=== PATIENT | female | born 1975 | race Caucasian/White ===

== ENCOUNTER → 2019-11-27 10:38 | Outpatient (CLI) | payer MEDICAID, SELFPAY ==
--- NOTE | 2019-11-27 10:43 | XR_ITS ---
PROCEDURE: XR FOOT WT BEARING RT 3V CLINICAL INDICATION: stress injury Pain on top of foot COMPARISON: No exams were available for comparison FINDINGS: No fracture or dislocation. No lytic or blastic change. There is normal mineralization. The joint spaces are well-preserved. No significant degenerative/arthritic changes. No erosive changes evident. Other findings:None. IMPRESSION: No acute findings. Dictated by: Carroll Dyer MD 11/27/2019 18:52 Electronically signed by Carroll Dyer MD in [place] 11/27/2019 18:52
== END ==
PROVIDERS: Visit Provider Podiatrist
DX: M79.671 Pain in right foot (principal)
CPT/HCPCS: 73630

== ENCOUNTER → 2020-01-30 09:04 | Outpatient (CLI) | payer MEDICAID, SELFPAY ==
--- NOTE | 2020-01-30 09:05 | MR_ITS ---
PROCEDURE: MR ANKLE RT WO/W CON CLINICAL INDICATION: evaluate for tendon tear, 5th met. stress fracture, peroneal tendinitis, foot sprain Percent is some 50 percent age Ankle pain with lateral sided swelling. Burning sensation in foot. Pain when bending and extending. No trauma. Prior x-ray 11/27/2019. 17 mL ProHance given. Lot:[id number] exp: Jun 2022 COMPARISON: XR FOOT WT BEARING RT 3V from 11/27/2019 TECHNIQUE: Routine multiplanar multi echo sequences are performed without gadolinium enhancement. FINDINGS: There is thinning of the ATFL with fluid on both sides consistent with partial tear. Small amount of fluid is present along the anterior and posterior aspect of the ankle joint. The PT FL and tibial fibular ligaments appear intact. Deltoid ligament appears intact. The posterior tibialis, flexor hallucis longus, and flexor digitorum longus appear intact as does the Achilles tendon and the anterior extensor tendons none. Peroneal tendons appear intact. No bone bruise apparent. IMPRESSION: Thinning of the fibers of the ATFL with fluid in this area consistent with at least a partial ATFL tear with small ankle joint effusion Dictated by: Carroll Dyer MD 02/03/2020 11:49 Electronically signed by Carroll Dyer MD in [place] 02/03/2020 11:49
== END ==
PROVIDERS: Visit Provider Podiatrist
DX: S93.601D Unspecified sprain of right foot, subsequent encounter (principal)
CPT/HCPCS: 73723; A9576

== ENCOUNTER 2020-02-14 10:00 | Outpatient (RCR) | payer MEDICAID, SELFPAY ==
--- NOTE | 2019-12-18 15:04 | HMH.PTOPEV ---
PT Outpatient Evaluation Rehab PT Outpatient Evaluation Start: 12/18/19 14:14 Freq: Status: Active Protocol: Document 12/18/19 14:14 LORENAJYOTI (Rec: 12/18/19 14:55 LORENAJYOTI [id number]) Electronically Signed By Harjit Riley PT 12/18/19 14:14 Outpatient Therapy Subjective History Subjective History This is the initial Physical Therapy evaluation for October. Pt is a 44 y/o female referred to PT for c/o R foot pain. Pt reports pain began on/off ~ in july. Pt reports pain began being rather consistent in August. Pt reports pain has increased since august. Pt reports pain is in dorsum of R foot and is a burning and stabbing pain at its worst. Pt reports she has been wearing fx boot which has eased pain, but pt reports she is no longer working, and not up on her feet all the time which she thinks has decreased pain more. Chief Complaint Pain,Stiff,Weakness Symptom Type Ache,Throb,Sharp,Dull,Stabbing ,Burning,Numbness,Tingling Symptoms Relieved By Rest/Positioning Symptoms Aggravated By Physical Activity,Walking Prior Functional Limitations None Current Functional Limitations Housework,Recreation Activity, Walking,Stairs Symptom Description Constant but Variable Level of pain today (0-10) 6 Pain scale - at its best (0-10) 0 Pain scale - at its worst (0-10) 8 Ankle/Foot Eval Gait Observation General Gait Pattern Observation Antalgic Gait,Decrease Weight Bear (R) Palpation Tenderness right Ankle/Foot Palpation Findings Tenderness,Trigger Point Ankle/Foot Palpation Overall Comment dorsum foot TTP/Calf Mm TTP ROM left Ankle/Foot Dorsiflexion w/Knee Extended 10 Active Range Motion (degrees) Ankle/Foot Plantar Flexion Active Range 50 of Motion (degrees) Ankle/Foot Eversion Active Range of 35 Motion (degrees) Ankle/Foot Inversion Active Range of 45 Motion (degrees) right Ankle/Foot Dorsiflexion w/Knee Extended 5 Active Range Motion (degrees) Ankle/Foot Plantar Flexion Active Range 50 of Motion (degrees) Ankle/Foot Eversion Active Range of 35 Motion (degrees) Ankle/Foot Inversion Act
== END 2020-02-14 10:05 | disposition home or self-care (01) ==
LOC: PT 10:00
PROVIDERS: Visit Provider Podiatrist
DX: M25.571 Pain in right ankle and joints of right foot (principal); S93.601A Unspecified sprain of right foot, initial encounter; M76.71 Peroneal tendinitis, right leg
CPT/HCPCS: 97010; 97014; 97033; 97035; 97110; 97112; 97163; 97164; G0283

== ENCOUNTER 2020-12-18 13:53 | Emergency (ER) | payer MEDICAID, SELFPAY ==
[2020-12-18 14:00] VITALS: BP 137/79; PULSE 115; RESP 20; TEMP 37.3; O2SAT 100; BMI 25.8
--- NOTE | 2020-12-18 14:23 | HMH.EDUTC ---
[facility] Disposition Clinical Impression: Acute sinusitis with symptoms greater than 10 days Disposition: Home, Self-Care Condition on Discharge: Good Instructions: Sinusitis, DI for Sinusitis, Doxycycline, Fluticasone Nasal [place] Additional Instructions: *Monitor Temp, Over the counter Motrin or Tylenol as directed/as needed Tylenol every 4 hours and Motrin every 6 hours (as long as your family doctor has told you that you can take it) for fever or pain. and straight to ER if unable to lower temp less than 101.0 after medication given *Warm salt water gargles may help to soothe the throat *Throat Lozenges *Warm fluids like tea with honey may help to soothe the throat *Sleep elevated *Humidifier/Vaporizer *Flonase 2 sprays in each nostril daily but be aware that it may take 2-3 days before you notice improvement Make sure to drink plenty of fluids Follow up IMMEDIATELY for new or worsening symptoms or no Noticeable improvement over the next 48-72 hours. 911 for difficulty breathing or swallowing Prescriptions: Doxycycline Monohydrate [Doxycycline [place] 100mg Tab] 100 mg PO Q12 7 Days #14 tab Transmission Status: Pending to [facility] # Fluticasone Propionate [Flonase 50mcg nasal spray 16gm] 1 spr NS DAILY #1 bottle Transmission Status: Pending to [facility] # methylPREDNISolone [Medrol 4mg tab] 4 mg PO DIRECTED #21 tab Transmission Status: Pending to [facility] # Referrals: Provider,Referral, MD [Primary Care Provider] - As needed Time of Disposition: 14:36 Medical Decision Making - Sunil Inquiry Pt receiving controlled substance: No Sunil was queried for this patient: No Vital Signs: 12/18/20 14:00 Temperature 99.1 F Temperature Source Oral Pulse Rate [Left Brachial] 115 H Respiratory Rate 20 Blood Pressure [Left Arm] 137/79 Blood Pressure Mean [Left Arm] 98 Blood Pressure Source [Left Arm] Automatic Cuff Blood Pressure Position [Left Arm] Sitting 02 Sat by Pulse Oximetry 100 Oxygen Delivery Method Room Air [facility] HPI - General Stated complaint: sinus drainage Time Seen by Provider: 12/18/20 14:23 Mode of Arrival: Ambulatory Source of Information: Patient Limitations: No Limitations Description of Symptoms (Recalled from Triage Doc. by RN): PATIENT C/O SINUS CONGESTION AND DRAINAGE, DIZZY SPELLS, HEADACHE, RIGHT EAR DRAINAGE AT NIGHT, AND INTERMITTEN SOA AND CHEST BURNING X 1 MONTH HEENT Symptoms (Recalled from RN notes): Yes Resp Symptoms (Recalled from RN notes): Yes Skin Symptoms (Recalled from RN notes): No MS Symptoms (Recalled from RN notes): No Functional Status (Recalled from RN notes): WNL - History of Present Illness Provider Complaint: Patient states that she has been having sinus problems for over a month State that she has also been having pressure like feeling in her ears, scratchy throat and drainage in the back of her throat State that she feels like it is trying to move into her lungs - Related Data Home Medications Medication Instructions Recorded Confirmed cetirizine 10 mg capsule 10 mg PO DAILY 11/27/19 12/18/20 Previous Rx's Medication Instructions Recorded Doxycycline Monohydrate 100 mg PO Q12 7 Days #14 tab 12/18/20 [Doxycycline [place] 100mg Tab] Fluticasone Propionate [Flonase 1 spr NS DAILY #1 bottle 12/18/20 50mcg nasal spray 16gm] methylPREDNISolone [Medrol 4mg 4 mg PO DIRECTED #21 tab 12/18/20 tab] Allergies Allergy/AdvReac Type Severity Reaction Status Date / Time Penicillins Allergy Verified 12/18/20 14:17 Sulfa (Sulfonamide Allergy Verified 03/03/20 14:06 Antibiotics) - Worker's Comp Is this a Worker's Comp case?: No [facility] History - Hepatitis A Screen Drug use history?: No High risk sexual behaviors?: No History of sexually transmitted infection?: No Currently employed?: No Childcare worker?: No Do you have indoor plumbing?: Yes Do you have electricity?
[2020-12-18 14:35] VITALS: BP 137/79; PULSE 115; RESP 20; TEMP 37.3; O2SAT 100
== END 2020-12-18 14:41 | disposition home or self-care (01) ==
PROVIDERS: Emergency Provider Nurse Practitioner
DX: J01.90 Acute sinusitis, unspecified (principal); F41.9 Anxiety disorder, unspecified
CPT/HCPCS: 99202; G0463

== ENCOUNTER 2020-12-21 16:10 | Observation (INO) | payer MEDICAID, SELFPAY ==
[2020-12-21] VITALS (29 sets, daily range): BP systolic 112–154; BP diastolic 62–89; PULSE 76–115; RESP 14–18; TEMP 36.6–37.4; O2SAT 92–100; BMI 27.4; BMI 28.9
[2020-12-21 16:30] LABS: Microscopic, Urine URINE MICROSCOPIC (MICROSCOPIC)
[2020-12-21 16:34] LABS: Appearance,Urine CLEAR (Clear); Bilirubin,Urine Negative (Negative); Blood, Urine Negative (Negative); Color,Urine YELLOW (Yellow); Glucose,Urine (UA) Negative (Negative); Ketones,Urine TRACE (Negative); Leukocyte Esterase,Urine Negative (Negative); Nitrate,Urine Negative (Negative); Protein,Urine Negative (Negative); Urobilinogen,Urine 0.2 EU/dl (0.2)
[2020-12-21 16:43] LABS: Basophils % 0.5 % (0.1-2.0); Eosinophils % 0.2 % (0.1-12.0); Lymphocytes # 1.3 K/mm3 (0.7-4.5); Lymphocytes % 18.4 % (10-50); Mean Corpuscular HGB Conc 26.1 g/dL (31.8-35.4); Mean Corpuscular Hemoglobin 16.4 pg (27.0-31.2); Mean Corpuscular Volume 62.8 fl (81-99); Mean Platelet Volume 11.5 fl (7.4-10.4); Monocytes # 0.3 K/mm3 (0.1-1.0); Monocytes % 4.3 % (1.7-9.3); Neutrophils # 5.2 K/mm3 (1.8-7.8); Neutrophils % 76.7 % (37.0-80.0); Platelet Count 301 K/mm3 (142-424); Red Blood Count 2.35 M/mm3 (4.20-5.40); Red Cell Distribution Width 19.3 % (11.5-17.5); White Blood Count 6.8 K/mm3 (4.8-10.8)
--- NOTE | 2020-12-21 16:47 | CT_ITS ---
PROCEDURE INFORMATION: Exam: CT Abdomen And Pelvis With Contrast Exam date and time: 12/21/2020 4:47 PM Age: 45 years old Clinical indication: Abdominal pain; Acute; Patient HX: Rlq pain TECHNIQUE: Imaging protocol: Computed tomography of the abdomen and pelvis with contrast. Total images: 292 Radiation optimization: All CT scans at this facility use at least one of these dose optimization techniques: automated exposure control; mA and/or kV adjustment per patient size (includes targeted exams where dose is matched to clinical indication); or iterative reconstruction. Contrast material: ISOVUE; Contrast volume: 75 ml; Contrast route: IV; COMPARISON: No relevant prior studies available. FINDINGS: Lungs: Visualized lung bases are clear. Heart: Heart size normal. Liver: Normal contour. No mass lesions. No intrahepatic biliary ductal dilatation. Gallbladder and bile ducts: Normal. No calcified stones. No ductal dilation. Pancreas: Normal. No inflammatory changes or ductal dilation. Spleen: Normal. No splenomegaly. Adrenal glands: Normal. No adrenal mass. Kidneys and ureters: No acute abnormalities. No hydronephrosis or hydroureter. No urinary tract stones are identified. Small intrapelvic phleboliths are present bilaterally. 7 mm fat density lesion in the upper pole cortex of the left kidney consistent with a small angiomyolipoma. This does not require further evaluation. Stomach and bowel: Large hiatal hernia containing much of the proximal stomach as well as a moderate amount of herniated intra-abdominal fat with no evidence of associated obstruction or strangulation. The small bowel is nondilated with no gross abnormality. There is a large amount of stool distributed throughout the colon suggesting constipation. Appendix: No evidence of appendicitis. The appendix is very short but demonstrates normal caliber at 4 mm diameter with no wall thickening or inflammatory changes. Intraperitoneal space: Minimal amount of intrapelvic free fluid, within physiologic range for a young woman. No free air. Vasculature: No acute process. No abdominal aortic aneurysm. Lymph nodes: No adenopathy. Urinary bladder: The urinary bladder is largely contracted without gross abnormality. Reproductive: Uterus and right ovary unremarkable. 11 mm follicle in the left ovary, within physiologic range. Bones/joints: No acute osseous abnormalities. Mild-moderate disc degenerative changes L5-S1. Soft tissues: Very small fatty umbilical hernia . No evidence of associated bowel herniation or strangulation. IMPRESSION: 1. There is a large amount of stool distributed throughout the colon suggesting constipation. 2. No evidence of appendicitis. No urolithiasis or hydronephrosis. 3. Large hiatal hernia. 4. Additional non-emergent findings detailed above. COMMENTS: Consistent with the [employer]'s Incidental Findings Committee white paper (J Am [place] Radiol 2018): Any incidental renal lesion less than 1 cm or classified as too small to characterize, or any incidental cystic renal lesion characterized as simple-appearing, is likely benign. No follow-up imaging is recommended for these lesions per consensus recommendations based on imaging criteria.
--- NOTE | 2020-12-21 16:47 | HMH.EDGENADL ---
ED Disposition Clinical Impression: Symptomatic anemia Constipation Qualifiers: Constipation type: unspecified constipation type Qualified Code(s): K59.00 - Constipation, unspecified Disposition: Admitted As Inpatient Condition on Discharge: Serious Instructions: DI for Acute Abdominal Pain Referrals: Provider,Referral, [Primary Care Provider] - Time of Disposition: 19:07 - Critical Care Critical Care Time: No Attestation: On , the high probability of a clinically significant, sudden or life threatening deterioration of the following system(s) required my full and direct attention, intervention and personal management. The time I documented below is in addition to time spent performing reported procedures but includes the following listed in this critical care notation. Total Critical Care Time: 30 Vital system(s) involved:: Circulatory Failure, Shock (Hemorrhage) My critical care processes included: Assessment & monitoring of V/S, Initial and Re-exams, Data Review/Interpretation, Coordinating Care, Medication Orders and management, Documentation Medical Decision Making - Medical Records Medical records reviewed: Yes: I reviewed the patient's medical records. - Sunil Inquiry Pt receiving controlled substance: No Vital Signs: 12/21/20 16:16 12/21/20 17:00 12/21/20 17:02 Temperature 97.8 F Temperature Source Oral Pulse Rate 95 H 115 H Pulse Rate [Right Radial] 109 H Respiratory Rate 18 18 TAR Vitals Timing Blood Pressure 133/70 133/70 Blood Pressure [Right Arm] 154/80 H Blood Pressure Mean 100 Blood Pressure Mean [Right Arm] 104 Blood Pressure Source Automatic Cuff Blood Pressure Source [Right Arm] Automatic Cuff Blood Pressure Position Sitting Blood Pressure Position [Right Arm] Sitting 02 Sat by Pulse Oximetry 98 100 95 Oxygen Delivery Method Room Air Room Air 12/21/20 18:00 12/21/20 18:45 12/21/20 19:00 Temperature 98.6 F 98.9 F Temperature Source Oral Oral Pulse Rate 85 84 88 Pulse Rate [Right Radial] Respiratory Rate 14 14 TAR Vitals Timing Pre-Blood Vitals Start Vitals Blood Pressure 126/71 112/66 139/85 Blood Pressure [Right Arm] Blood Pressure Mean 95 81 103 Blood Pressure Mean [Right Arm] Blood Pressure Source Automatic Cuff Automatic Cuff Blood Pressure Source [Right Arm] Blood Pressure Position Sitting Sitting Blood Pressure Position [Right Arm] 02 Sat by Pulse Oximetry 100 92 L 100 Oxygen Delivery Method 12/21/20 19:05 12/21/20 19:10 12/21/20 19:15 Temperature 97.8 F 97.9 F 98.1 F Temperature Source Oral Oral Oral Pulse Rate 88 85 83 Pulse Rate [Right Radial] Respiratory Rate 15 14 15 TAR Vitals Timing 5 Minute 10 Minute 15 Minute Blood Pressure 131/67 121/62 117/67 Blood Pressure [Right Arm] Blood Pressure Mean 88 81 83 Blood Pressure Mean [Right Arm] Blood Pressure Source Automatic Cuff Automatic Cuff Automatic Cuff Blood Pressure Source [Right Arm] Blood Pressure Position Sitting Sitting Sitting Blood Pressure Position [Right Arm] 02 Sat by Pulse Oximetry 100 100 100 Oxygen Delivery Method 12/21/20 19:30 12/21/20 19:45 Temperature 98.4 F 98.2 F Temperature Source Oral Oral Pulse Rate 84 81 Pulse Rate [Right Radial] Respiratory Rate 16 15 TAR Vitals Timing 30 Minute 45 Minute Blood Pressure 121/70 145/81 H Blood Pressure [Right Arm] Blood Pressure Mean 87 102 Blood Pressure Mean [Right Arm] Blood Pressure Source Automatic Cuff Automatic Cuff Blood Pressure Source [Right Arm] Blood Pressure Position Supine Supine Blood Pressure Position [Right Arm] 02 Sat by Pulse Oximetry 100 100 Oxygen Delivery Method - Lab Data Lab Results 12/21/20 16:20: Urine Color Yellow, Urine Appearance Clear, Urine pH 6.0, Ur Specific [place] 1.020, Urine Protein Negative, Urine Glucose (UA) Negative, Urine Ketones Trace, Urine Blood Negative, Urine Nitrate Negative, Urine Bilirubin Negative, Uri
[2020-12-21 16:48] LABS: Alanine Aminotransferase 18 U/L (12-78); Albumin Level 4.5 g/dl (3.5-5.0); Albumin/Globulin Ratio 1.6 (1.1-1.8); Alkaline Phosphatase 62 U/L (38-126); Anion Gap 9.6 mEq/L (5-15); Aspartate Amino Transferase 19 U/L (14-36); Bilirubin,Total 1.1 mg/dl (0.2-1.3); Blood Urea Nitrogen 11 mg/dl (7-17); Carbon Dioxide 23 mmol/L (22.0-30.0); Chloride 106 mmol/L (98-107); Creatinine Clearance Estimated 147 mL/min (50-200); Estimated Glomerular Filt Rate 109 ml/min (>60); GFR (African American) 132 ML/MIN (>60); Globulin 2.8 g/dL (1.3-3.2); Glucose 105 mg/dl (74-100); Lipase 90 U/L (23-300); Potassium 3.6 mmoL/L (3.5-5.1); Sodium 135 mmol/L (136-145); Total Protein,Serum 7.3 g/dl (6.3-8.2)
[2020-12-21 16:53] LABS: HCG Qualitative, Serum Negative (Negative)
--- NOTE | 2020-12-21 16:59 | PC.NURSE ---
critical hgb/hct labs reported to KIT BRAGA at this time.
[2020-12-21 17:00] LABS: Hematocrit 14.8 % (37.0-47.0)
[2020-12-21 17:01] LABS: Hemoglobin 3.8 g/dL (12.2-16.2)
--- NOTE | 2020-12-21 17:03 | PC.NURSE ---
pt to Ct
[2020-12-21 19:36] LABS: Occult Blood,Stool Negative (Negative)
[2020-12-21 20:00] LABS: Total Iron Binding Capacity 443 ug/dL (265-497)
[2020-12-21 20:12] LABS: VBG Base Excess -2.9 mmol/L (-2.4-2.3); VBG HCO3 22.4 mmol/L (23-30); VBG PCO2 41.1 mmol/L (35-51); VBG PH 7.35 mmol/L (7.31-7.41); VBG PO2 116.9 mmol/L (28-40); VBG Total CO2 23.6 mmol/L (23-27)
[2020-12-21 20:13] LABS: VBG Oxygen Saturation 98.5 % (50-70)
[2020-12-21 20:21] LABS: Iron 15 ug/dL (37-170)
[2020-12-21 20:23] LABS: Ferritin 2.82 ng/ml (6.24-137)
--- NOTE | 2020-12-21 21:45 | PC.NURSE ---
PT ARRIVED TO FLOOR VIA W/C FROM ED W/STAFF AT 2144
--- NOTE | 2020-12-21 21:58 | PC.NURSE ---
PT ARRIVED TO FLOOR VIA W/C FROM ED W/STAFF AT 1230
[2020-12-22] VITALS (27 sets, daily range): BP systolic 120–159; BP diastolic 65–94; PULSE 69–86; RESP 15–18; TEMP 36.6–37.2; O2SAT 98–100
[2020-12-22 01:51] LABS: Hemoglobin 6.5 g/dL (12.2-16.2)
[2020-12-22 01:54] LABS: Lactic Acid 0.8 mmol/L (0.7-2.1)
--- NOTE | 2020-12-22 02:46 | PC.NURSE ---
A&OX4. PT TOLERATING RA WELL. PT HAS RECEIVED TOTAL OF 3 UNITS OF BLOOD SINCE ARRIVAL. H&H HAVE INCREASED BUT STILL IN CRITICAL LEVEL (REPORTED TO MERISSA TAN) PT REPORTS FEELING MUCH BETTER AND STRONGER AT THIS TIME. HAS TOLERATED SNACKS. COLOR HAS COME BACK TO CHEEKS. PT UP INDEPENDENTLY IN ROOM, FAMILY AT BEDSIDE. NO C/O THUS FAR, VSS WILL CONTINUE TO MONITOR.
--- NOTE | 2020-12-22 07:15 | HMH.HPDC ---
General - General Admission date:: 12/21/20 Discharge date: 12/22/20 *Admission Date: 12/21/20 *Chief complaint: Weakness *History of present illness: 45-year-old female presented to the emergency department at the encouragement of her due to profound weakness. Symptoms have been present for 2 months and seem to be worsening. Patient reported generalized weakness worse with ambulation, shortness of breath worse with ambulation, swelling in the extremities, activity intolerance, and appearing pale. Patient has no personal history of anemia. She presented to the emergency department and was found to be severely anemic with indices indicating microcytic anemia. Patient denies blood in her stool. She reports that since June 2020 her periods have become slightly more irregular as were previously they were monthly with menses lasting 4 to 5 days. She denies blood in her stool. She is not particularly restrictive in her diet. She is unaware of any family history of anemia. She denies family history of cancers. [facility] History I have reviewed the patient's past medical history: Yes Medical History: Reports:: Anxiety *Have you ever received a pneumonia vaccine?: No *Have you received a flu vaccine this season?: No Other Medical History: Reports: Sinus Problems Other Surgeries: Yes: No Previous Surgery, Dilation and Curettage - *Social History Smoking Status: Never smoker Alcohol Intake: never *Occupational Status:: unemployed Housing: house Household Members: family *Travel in the last 8 weeks: None - Psychiatric History Pschychiatric History:: Reports:: Anxiety Family Hx:: Heart Attack Review of Systems - Constitutional Reports chills, Reports fatigue, Reports lack of energy, Reports malaise, Denies anorexia - Eyes Denies blurry vision - ENT Denies abnormal hearing - *Cardiovascular Reports shortness of breath, Reports shortness of breath with activity, Denies chest pain, Denies chest pain at rest - *Respiratory Reports shortness of breath, Denies chest congestion - *Gastrointestinal Denies belching - *Genitourinary Denies abnormal vaginal bleeding, Denies painful urination, Denies blood in urine - *Musculoskeletal Reports muscle weakness - Integumentary/Breasts Denies bleeding lesions - *Neurologic Denies headache(s), Denies numbness Exam Vital signs and Labs for Last 24 Hours: Temp Pulse Resp BP Pulse Ox 98.5 F 69 18 120/65 100 12/22/20 04:00 12/22/20 04:00 12/22/20 04:00 12/22/20 04:00 12/22/20 04:00 Laboratory Results - last 24 hr 12/21/20 01:33: Lactate 0.8 12/21/20 16:20: Urine Color Yellow, Urine Appearance Clear, Urine pH 6.0, Ur Specific [place] 1.020, Urine Protein Negative, Urine Glucose (UA) Negative, Urine Ketones Trace, Urine Blood Negative, Urine Nitrate Negative, Urine Bilirubin Negative, Urine Urobilinogen 0.2, Ur Leukocyte Esterase Negative, Urine RBC None, Urine WBC None, Ur Squamous Epith Cells None, Urine Bacteria None 12/21/20 16:34: WBC 6.8, RBC 2.35 L, Hgb 3.8 L*, Hct 14.8 L*, MCV 62.8 L, MCH 16.4 L, MCHC 26.1 L, RDW 19.3 H, Plt Count 301, MPV 11.5 H, Neut % (Auto) 76.7, Lymph % (Auto) 18.4, [place] % (Auto) 4.3, Eos % (Auto) 0.2, Baso % (Auto) 0.5, Neut # (Auto) 5.2, Lymph # (Auto) 1.3, [place] # (Auto) 0.3, Eos # (Auto) 0.0, Baso # (Auto) 0.0 12/21/20 16:34: Serum HCG, Qual Negative 12/21/20 16:34: Sodium 135 L, Potassium 3.6, Chloride 106, Carbon Dioxide 23, Anion Gap 9.6, BUN 11, Creatinine 0.60, Estimated Creat Clear 147, Estimated GFR 109, Est GFR ( Amer) 132, Glucose 105 H, Calcium 9.0, Total Bilirubin 1.1, AST 19, ALT 18, Alkaline Phosphatase 62, Total Protein 7.3, Albumin 4.5, Globulin 2.8, Albumin/Globulin Ratio 1.6, Lipase 90 12/21/20 16:34: Blood Type Confirm O Positive 12/21/20 16:34: Iron 15 L, Ferritin 2.82 L 12/21/20 16:34: TIBC 443 12/21/20 17:30: Blood Type O Positive, Antibody Screen Negative, Crossmatch (AHG) See Detail 12/21/20 18:08
--- NOTE | 2020-12-22 07:21 | P.CONPHA_ITS ---
[facility] Pharmacy VTE Monitoring - Patient Demographics Admission date: 12/21/20 Report Date: 12/22/20 Time: 07:21 Allergies/Adverse Reactions: Patient Allergies Penicillins Allergy (Verified 12/18/20 14:17) Sulfa (Sulfonamide Antibiotics) Allergy (Verified 03/03/20 14:06) Height: 1.68 m Weight: 81.703 kg Patient Problems: Current Active Problems Symptomatic anemia (Acute) Constipation (Acute) - VTE Risk Labs: VTE Related Lab Results Hgb 6.5 g/dL (12.2-16.2) L* D 12/22/20 01:33 Hct 21.0 % (37.0-47.0) L* 12/22/20 01:33 Plt Count 301 K/mm3 (142-424) 12/21/20 16:34 BUN 11 mg/dl (7-17) 12/21/20 16:34 Creatinine 0.60 mg/dl (0.52-1.04) 12/21/20 16:34 Estimated Creat Clear 147 mL/min (50-200) 12/21/20 16:34 - Prophylaxis VTE Prophylaxis Ordered?: Yes Types of VTE Prophylaxis: TEDS Knee High Location of Applied Device: Bilateral Lower Extremeties
[2020-12-22 07:27] LABS: Basophils % 0.5 % (0.1-2.0); Eosinophils % 0.5 % (0.1-12.0); Lymphocytes # 0.8 K/mm3 (0.7-4.5); Lymphocytes % 21.6 % (10-50); Mean Corpuscular HGB Conc 30.8 g/dL (31.8-35.4); Mean Corpuscular Hemoglobin 22.5 pg (27.0-31.2); Mean Platelet Volume 10.6 fl (7.4-10.4); Monocytes # 0.2 K/mm3 (0.1-1.0); Monocytes % 5.8 % (1.7-9.3); Neutrophils # 2.7 K/mm3 (1.8-7.8); Neutrophils % 71.6 % (37.0-80.0); Platelet Count 164 K/mm3 (142-424); Red Blood Count 2.87 M/mm3 (4.20-5.40); Red Cell Distribution Width 22.6 % (11.5-17.5); White Blood Count 3.8 K/mm3 (4.8-10.8)
[2020-12-22 07:31] LABS: Chloride 108 mmol/L (98-107)
[2020-12-22 07:32] LABS: Potassium 4.4 mmoL/L (3.5-5.1); Sodium 137 mmol/L (136-145)
[2020-12-22 07:35] LABS: Anion Gap 11.4 mEq/L (5-15); Blood Urea Nitrogen 8 mg/dl (7-17); Calcium 8.6 mg/dl (8.4-10.2); Carbon Dioxide 22 mmol/L (22.0-30.0); Creatinine Clearance Estimated 187 mL/min (50-200); Estimated Glomerular Filt Rate 135 ml/min (>60); GFR (African American) 163 ML/MIN (>60); Glucose 87 mg/dl (74-100)
[2020-12-22 07:51] LABS: Hemoglobin 6.5 g/dL (12.2-16.2)
[2020-12-22 15:56] LABS: Hemoglobin 7.2 g/dL (12.2-16.2)
--- NOTE | 2020-12-22 16:43 | PC.NURSE ---
PT TOLERATED 2 UNITS OF PRBC'S WELL. POST HGB WAS 7.2, HCT 23.0. RESULTS REPORTED TO PCP. PT HAS BEEN AMBULATING TO THE BATHROOM NO COMPLAINTS OF SOA OR SIGNS OF BLEEDING. EATING AND DRINKING WELL. PCP STATED IT WAS OKAY FOR PT TO BE DISCHARGED BUT HE WANTED TO FOLLOW UP WITH PT MONDAY. APPOINTMENT WAS MADE FOR MONDAY 12/25 AT 0845. PT WAS GIVEN AN OUTPATIENT ORDER FORM FOR LAB WORK BEFORE SHE FOLLOWS UP. PT WAS AGREEABLE TO COME TO THE OUTPATIENT LAB EARLY MONDAY MORNING BEFORE HER FOLLOW APPOINTMENT.
== END 2020-12-22 16:55 | disposition home or self-care (01) ==
LOC: ER 19:07 → 2ND 20:39
PROVIDERS: Admitting Provider Family Medicine; Emergency Provider Emergency Medicine; Visit Provider Family Medicine
DX: D50.9 Iron deficiency anemia, unspecified (principal)
CPT/HCPCS: 36415; 74177; 80048; 80053; 81001; 82272; 82728; 82803; 83540; 83550; 83605; 83690; 84703; 85014; 85018; 85025; 86850; 96365; 96375; 99284; G0328; G0378; P9016; Q9967; U0003

== ENCOUNTER → 2020-12-25 08:23 | Outpatient (CLI) | payer MEDICAID, SELFPAY ==
[2020-12-25 08:47] LABS: Basophils % 0.4 % (0.1-2.0); Eosinophils # 0.1 K/mm3 (0.0-0.4); Eosinophils % 1.5 % (0.1-12.0); Hematocrit 32.7 % (37.0-47.0); Hemoglobin 10.2 g/dL (12.2-16.2); Lymphocytes # 1.3 K/mm3 (0.7-4.5); Mean Corpuscular HGB Conc 31.2 g/dL (31.8-35.4); Mean Corpuscular Volume 77.1 fl (81-99); Mean Platelet Volume 10.3 fl (7.4-10.4); Monocytes # 0.3 K/mm3 (0.1-1.0); Monocytes % 4.3 % (1.7-9.3); Neutrophils % 76.8 % (37.0-80.0); Platelet Count 221 K/mm3 (142-424); Red Blood Count 4.24 M/mm3 (4.20-5.40); Red Cell Distribution Width 22.8 % (11.5-17.5); White Blood Count 7.8 K/mm3 (4.8-10.8)
== END ==
PROVIDERS: Visit Provider Family Medicine
DX: D50.9 Iron deficiency anemia, unspecified (principal)
CPT/HCPCS: 36415; 85025

== ENCOUNTER → 2021-01-22 12:00 | Outpatient (CLI) | payer MEDICAID, SELFPAY ==
[2021-01-22 12:28] LABS: Basophils % 0.5 % (0.1-2.0); Eosinophils # 0.2 K/mm3 (0.0-0.4); Eosinophils % 2.7 % (0.1-12.0); Hematocrit 41.7 % (37.0-47.0); Hemoglobin 12.2 g/dL (12.2-16.2); Lymphocytes % 16.7 % (10-50); Mean Corpuscular HGB Conc 29.3 g/dL (31.8-35.4); Mean Corpuscular Hemoglobin 26.4 pg (27.0-31.2); Mean Platelet Volume 8.6 fl (7.4-10.4); Monocytes # 0.3 K/mm3 (0.1-1.0); Monocytes % 5.5 % (1.7-9.3); Neutrophils # 4.6 K/mm3 (1.8-7.8); Neutrophils % 74.7 % (37.0-80.0); Platelet Count 202 K/mm3 (142-424); Red Blood Count 4.64 M/mm3 (4.20-5.40); Red Cell Distribution Width 19.2 % (11.5-17.5); White Blood Count 6.2 K/mm3 (4.8-10.8)
[2021-01-22 13:19] LABS: Iron 34 ug/dL (37-170)
[2021-01-22 13:28] LABS: Total Iron Binding Capacity 335 ug/dL (265-497)
[2021-01-22 13:56] LABS: Ferritin 17.1 ng/ml (6.24-137)
== END ==
PROVIDERS: Visit Provider Family Medicine
DX: D50.0 Iron deficiency anemia secondary to blood loss (chronic) (principal)
CPT/HCPCS: 36415; 82728; 83540; 83550; 85025

== ENCOUNTER → 2021-05-20 19:32 | Outpatient (CLI) | payer MEDICAID, SELFPAY ==
[2021-05-20 19:45] LABS: Basophils % 0.4 % (0.1-2.0); Eosinophils # 0.1 K/mm3 (0.0-0.4); Eosinophils % 1.3 % (0.1-12.0); Hematocrit 40.5 % (37.0-47.0); Hemoglobin 12.8 g/dL (12.2-16.2); Lymphocytes # 0.7 K/mm3 (0.7-4.5); Mean Corpuscular HGB Conc 31.5 g/dL (31.8-35.4); Mean Corpuscular Hemoglobin 27.7 pg (27.0-31.2); Mean Corpuscular Volume 87.9 fl (81-99); Monocytes # 0.2 K/mm3 (0.1-1.0); Neutrophils # 6.1 K/mm3 (1.8-7.8); Neutrophils % 85.3 % (37.0-80.0); Platelet Count 274 K/mm3 (142-424); Red Blood Count 4.61 M/mm3 (4.20-5.40); Red Cell Distribution Width 15.3 % (11.5-17.5); White Blood Count 7.2 K/mm3 (4.8-10.8)
[2021-05-20 19:52] LABS: MANUAL DIFFERENTIAL MANUAL DIFFERENTIAL (MANUAL DIFF)
[2021-05-20 20:37] LABS: Total Iron Binding Capacity 381 ug/dL (265-497)
[2021-05-20 21:04] LABS: Iron 26 ug/dL (37-170)
[2021-05-20 21:24] LABS: Eosinophils % 2 % (0-3); Lymphocytes % 9 % (10-50); Monocytes % 3 % (2-9); Neutrophils % 86 % (42-76); Nucleated Red Blood Cells 1; Platelet Estimate Normal; Total Cells Counted 100
[2021-05-20 21:38] LABS: Ferritin 7.19 ng/ml (6.24-137)
== END ==
PROVIDERS: Visit Provider Physician Assistant
DX: D50.9 Iron deficiency anemia, unspecified (principal); D64.9 Anemia, unspecified
CPT/HCPCS: 82728; 83540; 83550; 85007; 85025

== ENCOUNTER → 2022-01-11 15:32 | Outpatient (CLI) | payer MEDICAID, SELFPAY ==
[2022-01-11 13:59] LABS: Alanine Aminotransferase 17 U/L (12-78); Albumin Level 4.3 g/dl (3.5-5.0); Albumin/Globulin Ratio 1.5 (1.1-1.8); Alkaline Phosphatase 89 U/L (38-126); Aspartate Amino Transferase 24 U/L (14-36); Bilirubin,Total 0.9 mg/dl (0.2-1.3); Blood Urea Nitrogen 8 mg/dl (7-17); Calcium 10.1 mg/dl (8.4-10.2); Carbon Dioxide 23 mmol/L (22.0-30.0); Chloride 103 mmol/L (98-107); Cholesterol 162 mg/dl (140-200); Estimated Glomerular Filt Rate 109 ml/min (>60); GFR (African American) 131 ML/MIN (>60); Globulin 2.9 g/dL (1.3-3.2); Glucose 98 mg/dl (74-100); HDL Cholesterol 41 mg/dl (40-60); Sodium 136 mmol/L (136-145); Total Protein,Serum 7.2 g/dl (6.3-8.2); Triglycerides 107 mg/dl (30-150); VLDL Cholesterol 21 mg/dL (0-40)
[2022-01-11 14:07] LABS: Total Iron Binding Capacity 412 ug/dL (265-497)
[2022-01-11 14:10] LABS: Iron 17 ug/dL (37-170)
[2022-01-11 14:11] LABS: Direct LDL Cholesterol 88.82 mg/dL (100-129)
[2022-01-11 14:16] LABS: 25-OH Vitamin D, Total 48.2 ng/mL (30-100)
[2022-01-11 14:24] LABS: HCG,Quantitative < 2 mIU/ml (0-5.42)
[2022-01-11 14:31] LABS: Thyroid Stimulating Hormone 1.96 uIU/mL (0.465-4.68)
[2022-01-11 14:33] LABS: Hematocrit 24.7 % (37.0-47.0); Lymphocytes # 0.6 K/mm3 (0.7-4.5); Lymphocytes % 15.6 % (10-50); Mean Corpuscular HGB Conc 26.2 g/dL (31.8-35.4); Mean Corpuscular Hemoglobin 18.8 pg (27.0-31.2); Mean Platelet Volume 11.2 fl (7.4-10.4); Monocytes # 0.2 K/mm3 (0.1-1.0); Monocytes % 5.7 % (1.7-9.3); Neutrophils # 3.1 K/mm3 (1.8-7.8); Neutrophils % 76.6 % (37.0-80.0); Platelet Count 226 K/mm3 (142-424); Red Blood Count 3.43 M/mm3 (4.20-5.40); Red Cell Distribution Width 21.7 % (11.5-17.5); White Blood Count 4.1 K/mm3 (4.8-10.8)
[2022-01-11 14:35] LABS: Ferritin 3.89 ng/ml (6.24-137)
[2022-01-11 14:39] LABS: Hemoglobin 6.5 g/dL (12.2-16.2)
[2022-01-11 14:50] LABS: Vitamin B12 692 pg/mL (239-931)
== END ==
PROVIDERS: Visit Provider Physician Assistant
DX: Z32.00 Encounter for pregnancy test, result unknown (principal); Z86.2 Personal history of diseases of the blood and blood-forming organs and certain disorders involving the immune mechanism
CPT/HCPCS: 80053; 80061; 82306; 82607; 82728; 83540; 83550; 84443; 84702; 85025

== ENCOUNTER → 2022-01-11 16:22 | Outpatient (CLI) | payer MEDICAID, SELFPAY ==
[2022-01-13 16:16] LABS: Peripheral Smear Review Scanned Result
== END ==
PROVIDERS: PCP Physician Assistant; Visit Provider Physician Assistant
DX: D50.9 Iron deficiency anemia, unspecified (principal)
CPT/HCPCS: 36415; 86850

== ENCOUNTER 2022-01-12 08:18 | Outpatient (CLI) | payer MEDICAID, SELFPAY ==
[2022-01-12] VITALS (20 sets, daily range): BP systolic 119–142; BP diastolic 63–89; PULSE 70–84; RESP 17–19; TEMP 36.4–36.8; O2SAT 99–100; BMI 29.8
[2022-01-12 14:53] LABS: Hematocrit 26.2 % (37.0-47.0); Hemoglobin 8.4 g/dL (12.2-16.2)
== END 2022-01-12 14:35 | disposition home or self-care (01) ==
LOC: INF 08:18
PROVIDERS: PCP Physician Assistant; Visit Provider Physician Assistant
DX: D50.9 Iron deficiency anemia, unspecified (principal); D64.9 Anemia, unspecified
CPT/HCPCS: 36430; 85014; 85018; 86850; P9016

== ENCOUNTER 2022-02-18 10:46 | Outpatient (CLI) | payer MEDICAID, SELFPAY ==
[2022-02-18 11:05] VITALS: BP 118/84; PULSE 83; RESP 18; O2SAT 99
[2022-02-18 11:42] VITALS: BP 134/73; PULSE 69; RESP 18
== END 2022-02-18 11:42 | disposition home or self-care (01) ==
LOC: INF 10:47
PROVIDERS: PCP Physician Assistant; Visit Provider Internal Medicine Medical Oncology
DX: D50.9 Iron deficiency anemia, unspecified (principal)
CPT/HCPCS: 96365; J1439

== ENCOUNTER 2022-02-25 09:47 | Outpatient (CLI) | payer MEDICAID, SELFPAY ==
[2022-02-25 10:10] VITALS: BP 118/80; PULSE 80; RESP 16; O2SAT 97
[2022-02-25 10:40] VITALS: BP 123/73; PULSE 74; RESP 16
== END 2022-02-25 10:50 | disposition home or self-care (01) ==
LOC: INF 09:47
PROVIDERS: PCP Physician Assistant; Visit Provider Internal Medicine Medical Oncology
DX: D50.8 Other iron deficiency anemias (principal)
CPT/HCPCS: 96365; J1439

== ENCOUNTER → 2022-04-19 14:05 | Outpatient (CLI) | payer MEDICAID, SELFPAY ==
[2022-04-19 14:36] LABS: Basophils # 0.1 K/mm3 (0-0.2); Basophils % 0.6 % (0.1-2.0); Eosinophils # 0.3 K/mm3 (0.0-0.4); Eosinophils % 4.4 % (0.1-12.0); Hematocrit 38.2 % (37.0-47.0); Hemoglobin 12.5 g/dL (12.2-16.2); Lymphocytes # 1.3 K/mm3 (0.7-4.5); Lymphocytes % 17.5 % (10-50); Mean Corpuscular HGB Conc 32.7 g/dL (31.8-35.4); Mean Corpuscular Hemoglobin 27.9 pg (27.0-31.2); Mean Corpuscular Volume 85.2 fl (81-99); Mean Platelet Volume 9.4 fl (7.4-10.4); Monocytes # 0.3 K/mm3 (0.1-1.0); Monocytes % 3.9 % (1.7-9.3); Neutrophils # 5.5 K/mm3 (1.8-7.8); Neutrophils % 73.6 % (37.0-80.0); Platelet Count 233 K/mm3 (142-424); Red Blood Count 4.48 M/mm3 (4.20-5.40); Red Cell Distribution Width 20.2 % (11.5-17.5); White Blood Count 7.5 K/mm3 (4.8-10.8)
[2022-04-19 14:58] LABS: Iron 34 ug/dL (37-170)
[2022-04-19 15:07] LABS: Total Iron Binding Capacity 326 ug/dL (265-497)
[2022-04-19 15:34] LABS: Ferritin 9.26 ng/ml (6.24-137)
== END ==
PROVIDERS: PCP Physician Assistant; Visit Provider Internal Medicine Medical Oncology
DX: D50.8 Other iron deficiency anemias (principal)
CPT/HCPCS: 36415; 82728; 83540; 83550; 85025

== ENCOUNTER 2022-05-06 08:57 | Outpatient (CLI) | payer MEDICAID, SELFPAY ==
[2022-05-06 08:57] VITALS: BP 120/74; PULSE 68; RESP 20; TEMP 36.9; O2SAT 95
[2022-05-06 09:50] VITALS: BP 142/79; PULSE 68; RESP 20; TEMP 36.9; O2SAT 95
== END 2022-05-06 09:50 | disposition home or self-care (01) ==
LOC: INF 08:58
PROVIDERS: PCP Physician Assistant; Visit Provider Internal Medicine Medical Oncology
DX: D50.8 Other iron deficiency anemias (principal)
CPT/HCPCS: 96365; J1439

== ENCOUNTER 2022-05-13 09:13 | Outpatient (CLI) | payer MEDICAID, SELFPAY ==
[2022-05-13 09:35] VITALS: BP 119/75; PULSE 70; RESP 18; O2SAT 99
[2022-05-13 10:28] VITALS: BP 128/77; PULSE 70; RESP 18; O2SAT 99
== END 2022-05-13 10:28 | disposition home or self-care (01) ==
LOC: INF 09:13
PROVIDERS: PCP Physician Assistant; Visit Provider Internal Medicine Medical Oncology
DX: D50.8 Other iron deficiency anemias (principal)
CPT/HCPCS: 96365; J1439

== ENCOUNTER → 2022-08-02 14:07 | Outpatient (CLI) | payer MEDICAID, SELFPAY ==
[2022-08-02 16:03] LABS: Basophils % 0.5 % (0.1-2.0); Eosinophils # 0.1 K/mm3 (0.0-0.4); Eosinophils % 2.4 % (0.1-12.0); Hematocrit 26.4 % (37.0-47.0); Hemoglobin 8.1 g/dL (12.2-16.2); Lymphocytes # 0.9 K/mm3 (0.7-4.5); Mean Corpuscular HGB Conc 30.8 g/dL (31.8-35.4); Mean Corpuscular Hemoglobin 24.5 pg (27.0-31.2); Mean Corpuscular Volume 79.3 fl (81-99); Mean Platelet Volume 9.8 fl (7.4-10.4); Monocytes # 0.2 K/mm3 (0.1-1.0); Neutrophils # 4.2 K/mm3 (1.8-7.8); Neutrophils % 77.1 % (37.0-80.0); Platelet Count 267 K/mm3 (142-424); Red Blood Count 3.33 M/mm3 (4.20-5.40); Red Cell Distribution Width 18.5 % (11.5-17.5); White Blood Count 5.5 K/mm3 (4.8-10.8)
[2022-08-02 16:28] LABS: Iron 20 ug/dL (37-170)
[2022-08-02 16:38] LABS: Total Iron Binding Capacity 383 ug/dL (265-497)
[2022-08-02 17:05] LABS: Ferritin 3.97 ng/ml (6.24-137)
== END ==
PROVIDERS: PCP Physician Assistant; Visit Provider Internal Medicine Medical Oncology
DX: D50.9 Iron deficiency anemia, unspecified (principal)
CPT/HCPCS: 36415; 82728; 83540; 83550; 85025

== ENCOUNTER 2022-08-12 13:23 | Outpatient (CLI) | payer MEDICAID, SELFPAY ==
[2022-08-12 13:45] VITALS: BP 97/58; PULSE 81; RESP 18; O2SAT 99; BMI 32.4
[2022-08-12 14:52] LABS: Basophils % 0.4 % (0.1-2.0); Eosinophils # 0.1 K/mm3 (0.0-0.4); Eosinophils % 1.7 % (0.1-12.0); Lymphocytes # 0.5 K/mm3 (0.7-4.5); Lymphocytes % 7.7 % (10-50); Mean Corpuscular HGB Conc 30.9 g/dL (31.8-35.4); Mean Corpuscular Hemoglobin 23.1 pg (27.0-31.2); Mean Platelet Volume 9.9 fl (7.4-10.4); Monocytes # 0.2 K/mm3 (0.1-1.0); Monocytes % 2.8 % (1.7-9.3); Neutrophils % 87.5 % (37.0-80.0); Platelet Count 224 K/mm3 (142-424); Red Cell Distribution Width 19.1 % (11.5-17.5); White Blood Count 6.9 K/mm3 (4.8-10.8)
[2022-08-12 15:12] LABS: Hematocrit 20.2 % (37.0-47.0); Hemoglobin 6.2 g/dL (12.2-16.2)
[2022-08-12 15:14] LABS: MANUAL DIFFERENTIAL MANUAL DIFFERENTIAL (MANUAL DIFF)
--- NOTE | 2022-08-12 15:47 | PC.NURSE ---
Ernestina Le from lab called critical lab result of Hgb 6.2, Hct 20.2. Lab result, name and was read back and verified. Dr upton was notified and ordered 1 unit PRBC to be infused tomorrow on 08/13/22.
[2022-08-12 16:29] LABS: Eosinophils % 2 % (0-3); Hypochromasia 2+; Lymphocytes % 13 % (10-50); Monocytes % 1 % (2-9); Neutrophils % 84 % (42-76); Platelet Estimate Normal; Total Cells Counted 100
== END 2022-08-12 15:30 | disposition home or self-care (01) ==
LOC: INF 13:24
PROVIDERS: PCP Physician Assistant; Visit Provider Internal Medicine Medical Oncology
DX: D50.9 Iron deficiency anemia, unspecified (principal)
CPT/HCPCS: 85007; 85025; 86850; 96365; J1439

== ENCOUNTER → 2022-08-13 08:52 | Outpatient (CLI) | payer MEDICAID, SELFPAY ==
[2022-08-13] VITALS (10 sets, daily range): BP systolic 119–141; BP diastolic 69–87; PULSE 73–89; RESP 16–18; TEMP 36.9–37.1; O2SAT 98–100
== END ==
PROVIDERS: PCP Physician Assistant; Visit Provider Internal Medicine Medical Oncology
DX: D50.9 Iron deficiency anemia, unspecified (principal)
CPT/HCPCS: 36430; P9016

== ENCOUNTER 2022-08-19 09:48 | Outpatient (CLI) | payer MEDICAID, SELFPAY ==
[2022-08-19 10:15] VITALS: BP 117/68; PULSE 86; RESP 16; O2SAT 100
[2022-08-19 10:50] VITALS: BP 125/68; PULSE 87; RESP 16
== END 2022-08-19 11:00 | disposition home or self-care (01) ==
LOC: INF 09:48
PROVIDERS: PCP Physician Assistant; Visit Provider Internal Medicine Medical Oncology
DX: D50.9 Iron deficiency anemia, unspecified (principal)
CPT/HCPCS: 96365; J1439

== ENCOUNTER → 2022-09-28 14:06 | Outpatient (CLI) | payer MEDICAID, SELFPAY ==
[2022-09-28 14:53] LABS: Basophils % 0.5 % (0.1-2.0); Eosinophils # 0.4 K/mm3 (0.0-0.4); Eosinophils % 9.9 % (0.1-12.0); Hematocrit 28.4 % (37.0-47.0); Hemoglobin 8.6 g/dL (12.2-16.2); Lymphocytes # 0.7 K/mm3 (0.7-4.5); Lymphocytes % 18.5 % (10-50); Mean Corpuscular HGB Conc 30.3 g/dL (31.8-35.4); Mean Corpuscular Hemoglobin 24.8 pg (27.0-31.2); Mean Corpuscular Volume 81.9 fl (81-99); Mean Platelet Volume 9.3 fl (7.4-10.4); Monocytes # 0.2 K/mm3 (0.1-1.0); Monocytes % 4.1 % (1.7-9.3); Neutrophils # 2.4 K/mm3 (1.8-7.8); Platelet Count 276 K/mm3 (142-424); Red Blood Count 3.47 M/mm3 (4.20-5.40); Red Cell Distribution Width 19.5 % (11.5-17.5); White Blood Count 3.6 K/mm3 (4.8-10.8)
[2022-09-28 15:25] LABS: Iron 23 ug/dL (37-170)
[2022-09-28 15:32] LABS: Total Iron Binding Capacity 339 ug/dL (265-497)
[2022-09-28 16:00] LABS: Ferritin 7.75 ng/ml (6.24-137)
== END ==
PROVIDERS: PCP Physician Assistant; Visit Provider Internal Medicine Medical Oncology
DX: D50.9 Iron deficiency anemia, unspecified (principal)
CPT/HCPCS: 36415; 82728; 83540; 83550; 85025

== ENCOUNTER 2022-10-04 14:50 | Outpatient (CLI) | payer MEDICAID, SELFPAY ==
[2022-10-04 15:06] VITALS: BP 131/76; PULSE 84; RESP 18; O2SAT 99
[2022-10-04 15:44] VITALS: BP 128/74; PULSE 72; RESP 18; O2SAT 99
== END 2022-10-04 15:44 | disposition home or self-care (01) ==
LOC: INF 14:51
PROVIDERS: PCP Physician Assistant; Visit Provider Internal Medicine Medical Oncology
DX: D50.8 Other iron deficiency anemias (principal)
CPT/HCPCS: 96365; J1439

== ENCOUNTER 2022-10-11 12:52 | Outpatient (CLI) | payer MEDICAID, SELFPAY ==
[2022-10-11 13:08] VITALS: BP 144/79; PULSE 88; RESP 18; TEMP 36.6; O2SAT 100
[2022-10-11 13:47] VITALS: BP 112/65; PULSE 75; RESP 18; O2SAT 99
== END 2022-10-11 13:50 | disposition home or self-care (01) ==
LOC: INF 12:53
PROVIDERS: PCP Physician Assistant; Visit Provider Internal Medicine Medical Oncology
DX: D50.9 Iron deficiency anemia, unspecified (principal)
CPT/HCPCS: 96365; J1439

== ENCOUNTER → 2022-11-29 14:36 | Outpatient (CLI) | payer MEDICAID, SELFPAY ==
[2022-11-29 15:28] LABS: Basophils % 0.4 % (0.1-2.0); Eosinophils # 0.2 K/mm3 (0.0-0.4); Eosinophils % 3.1 % (0.1-12.0); Hematocrit 36.2 % (37.0-47.0); Hemoglobin 11.4 g/dL (12.2-16.2); Mean Corpuscular HGB Conc 31.4 g/dL (31.8-35.4); Mean Corpuscular Hemoglobin 26.9 pg (27.0-31.2); Mean Corpuscular Volume 85.7 fl (81-99); Mean Platelet Volume 8.2 fl (7.4-10.4); Monocytes # 0.2 K/mm3 (0.1-1.0); Monocytes % 4.4 % (1.7-9.3); Neutrophils # 3.5 K/mm3 (1.8-7.8); Neutrophils % 72.2 % (37.0-80.0); Platelet Count 280 K/mm3 (142-424); Red Blood Count 4.22 M/mm3 (4.20-5.40); Red Cell Distribution Width 18.5 % (11.5-17.5); White Blood Count 4.9 K/mm3 (4.8-10.8)
[2022-11-29 16:16] LABS: Iron 42 ug/dL (37-170)
[2022-11-29 16:33] LABS: Total Iron Binding Capacity 323 ug/dL (265-497)
== END ==
PROVIDERS: PCP Physician Assistant; Visit Provider Internal Medicine Medical Oncology
DX: D50.9 Iron deficiency anemia, unspecified (principal)
CPT/HCPCS: 36415; 82728; 83540; 83550; 85025

== ENCOUNTER → 2023-02-21 12:05 | Outpatient (CLI) | payer SELFPAY ==
[2023-02-21 12:41] LABS: Basophils % 0.4 % (0.1-2.0); Eosinophils # 0.1 K/mm3 (0.0-0.4); Eosinophils % 1.7 % (0.1-12.0); Hematocrit 27.9 % (37.0-47.0); Hemoglobin 7.7 g/dL (12.2-16.2); Lymphocytes # 0.8 K/mm3 (0.7-4.5); Mean Corpuscular HGB Conc 27.8 g/dL (31.8-35.4); Mean Corpuscular Hemoglobin 20.6 pg (27.0-31.2); Mean Platelet Volume 9.5 fl (7.4-10.4); Monocytes # 0.2 K/mm3 (0.1-1.0); Monocytes % 4.3 % (1.7-9.3); Neutrophils # 4.2 K/mm3 (1.8-7.8); Neutrophils % 78.6 % (37.0-80.0); Platelet Count 235 K/mm3 (142-424); Red Blood Count 3.77 M/mm3 (4.20-5.40); Red Cell Distribution Width 19.9 % (11.5-17.5); White Blood Count 5.4 K/mm3 (4.8-10.8)
[2023-02-21 15:12] LABS: Iron 26 ug/dL (37-170)
[2023-02-21 15:36] LABS: Total Iron Binding Capacity 402 ug/dL (265-497)
[2023-02-21 15:49] LABS: Ferritin 5.22 ng/ml (6.24-137)
== END ==
PROVIDERS: PCP Physician Assistant; Visit Provider Internal Medicine Medical Oncology
DX: D50.9 Iron deficiency anemia, unspecified (principal)
CPT/HCPCS: 36415; 82728; 83540; 83550; 85025

== ENCOUNTER 2023-05-23 11:54 | Outpatient (CLI) | payer SELFPAY ==
[2023-05-23 11:56] VITALS: BMI 33.4
[2023-05-23 12:29] LABS: Basophils % 0.4 % (0.1-2.0); Eosinophils # 0.1 K/mm3 (0.0-0.4); Eosinophils % 2.6 % (0.1-12.0); Hematocrit 32.1 % (37.0-47.0); Hemoglobin 10.1 g/dL (12.2-16.2); Lymphocytes # 0.6 K/mm3 (0.7-4.5); Lymphocytes % 14.8 % (10-50); Mean Corpuscular HGB Conc 31.5 g/dL (31.8-35.4); Mean Corpuscular Hemoglobin 30.2 pg (27.0-31.2); Mean Platelet Volume 8.6 fl (7.4-10.4); Monocytes # 0.2 K/mm3 (0.1-1.0); Monocytes % 4.2 % (1.7-9.3); Platelet Count 240 K/mm3 (142-424); Red Blood Count 3.35 M/mm3 (4.20-5.40); Red Cell Distribution Width 15.5 % (11.5-17.5); White Blood Count 3.8 K/mm3 (4.8-10.8)
[2023-05-23 15:06] LABS: Iron 272 ug/dL (37-170)
[2023-05-23 15:16] LABS: Total Iron Binding Capacity 291 ug/dL (265-497)
[2023-05-23 15:44] LABS: Ferritin 25.2 ng/ml (6.24-137)
== END 2023-05-23 12:10 | disposition home or self-care (01) ==
PROVIDERS: PCP Nurse Practitioner; Visit Provider Internal Medicine Medical Oncology
DX: D50.9 Iron deficiency anemia, unspecified (principal)
CPT/HCPCS: 36415; 82728; 83540; 83550; 85025

== ENCOUNTER 2023-06-07 09:51 | Outpatient (CLI) | payer SELFPAY ==
[2023-06-07 09:56] VITALS: BMI 34.3
--- NOTE | 2023-06-07 10:00 | PC.NURSE ---
1000-collected labs via venipuncture stick with butterfly needle in right ac;pt d/c home.
[2023-06-07 10:13] LABS: Basophils % 0.3 % (0.1-2.0); Eosinophils # 0.1 K/mm3 (0.0-0.4); Eosinophils % 1.7 % (0.1-12.0); Hematocrit 37.1 % (37.0-47.0); Hemoglobin 11.8 g/dL (12.2-16.2); Lymphocytes # 0.8 K/mm3 (0.7-4.5); Lymphocytes % 12.9 % (10-50); Mean Corpuscular HGB Conc 31.7 g/dL (31.8-35.4); Mean Corpuscular Volume 94.5 fl (81-99); Mean Platelet Volume 9.3 fl (7.4-10.4); Monocytes # 0.2 K/mm3 (0.1-1.0); Neutrophils # 4.8 K/mm3 (1.8-7.8); Platelet Count 210 K/mm3 (142-424); Red Blood Count 3.92 M/mm3 (4.20-5.40); Red Cell Distribution Width 14.6 % (11.5-17.5)
[2023-06-07 10:18] LABS: Iron 39 ug/dL (37-170)
[2023-06-07 10:28] LABS: Total Iron Binding Capacity 281 ug/dL (265-497)
[2023-06-07 10:56] LABS: Ferritin 28.4 ng/ml (6.24-137)
== END 2023-06-07 10:03 | disposition home or self-care (01) ==
LOC: INF 09:51
PROVIDERS: PCP Physician Assistant; Visit Provider Internal Medicine Medical Oncology
DX: D50.0 Iron deficiency anemia secondary to blood loss (chronic) (principal)
CPT/HCPCS: 36415; 82728; 83540; 83550; 85025

== ENCOUNTER 2023-08-29 10:22 | Outpatient (CLI) | payer SELFPAY ==
[2023-08-29 10:55] LABS: Basophils % 0.5 % (0.1-2.0); Eosinophils # 0.1 K/mm3 (0.0-0.4); Hematocrit 34.1 % (37.0-47.0); Hemoglobin 10.6 g/dL (12.2-16.2); Lymphocytes # 0.7 K/mm3 (0.7-4.5); Lymphocytes % 15.1 % (10-50); Mean Corpuscular HGB Conc 31.2 g/dL (31.8-35.4); Mean Corpuscular Hemoglobin 27.9 pg (27.0-31.2); Mean Corpuscular Volume 89.7 fl (81-99); Mean Platelet Volume 9.2 fl (7.4-10.4); Monocytes # 0.2 K/mm3 (0.1-1.0); Monocytes % 4.3 % (1.7-9.3); Neutrophils # 3.8 K/mm3 (1.8-7.8); Neutrophils % 78.1 % (37.0-80.0); Platelet Count 248 K/mm3 (142-424); Red Cell Distribution Width 16.5 % (11.5-17.5); White Blood Count 4.9 K/mm3 (4.8-10.8)
[2023-08-29 11:26] LABS: Iron 23 ug/dL (37-170)
[2023-08-29 11:36] LABS: Total Iron Binding Capacity 320 ug/dL (265-497)
[2023-08-29 12:01] LABS: Ferritin 32.5 ng/ml (6.24-137)
== END 2023-08-29 23:59 ==
LOC: LAB 10:24
PROVIDERS: PCP Physician Assistant; Visit Provider Internal Medicine Medical Oncology
DX: D50.9 Iron deficiency anemia, unspecified (principal)
CPT/HCPCS: 36415; 82728; 83540; 83550; 85025

== ENCOUNTER 2023-10-27 13:13 | Outpatient (CLI) | payer SELFPAY ==
[2023-10-27 13:30] LABS: Basophils % 0.6 % (0.1-2.0); Eosinophils # 0.2 K/mm3 (0.0-0.4); Eosinophils % 2.7 % (0.1-12.0); Hematocrit 32.9 % (37.0-47.0); Lymphocytes # 0.8 K/mm3 (0.7-4.5); Mean Corpuscular HGB Conc 30.3 g/dL (31.8-35.4); Mean Corpuscular Hemoglobin 30.4 pg (27.0-31.2); Mean Corpuscular Volume 100.2 fl (81-99); Mean Platelet Volume 9.6 fl (7.4-10.4); Monocytes # 0.1 K/mm3 (0.1-1.0); Monocytes % 2.2 % (1.7-9.3); Neutrophils # 5.4 K/mm3 (1.8-7.8); Neutrophils % 82.5 % (37.0-80.0); Platelet Count 246 K/mm3 (142-424); Red Blood Count 3.29 M/mm3 (4.20-5.40); Red Cell Distribution Width 16.6 % (11.5-17.5); White Blood Count 6.5 K/mm3 (4.8-10.8)
[2023-10-27 14:00] LABS: Iron 215 ug/dL (37-170)
[2023-10-27 14:10] LABS: Total Iron Binding Capacity 293 ug/dL (265-497)
== END 2023-10-27 23:59 ==
LOC: LAB 13:13
PROVIDERS: PCP Physician Assistant; Visit Provider Internal Medicine Medical Oncology
DX: D50.9 Iron deficiency anemia, unspecified (principal)
CPT/HCPCS: 36415; 82728; 83540; 83550; 85025

== ENCOUNTER 2023-11-17 13:50 | Outpatient (CLI) | payer SELFPAY ==
[2023-11-17 17:01] LABS: Iron 58 ug/dL (37-170)
[2023-11-17 17:10] LABS: Total Iron Binding Capacity 341 ug/dL (265-497)
== END 2023-11-17 23:59 | disposition home or self-care (01) ==
LOC: LAB 13:51
PROVIDERS: PCP Physician Assistant; Visit Provider Internal Medicine Medical Oncology
DX: D64.9 Anemia, unspecified (principal)
CPT/HCPCS: 36415; 83540; 83550